=== PATIENT | male | born 1975 | race Caucasian/White ===

== ENCOUNTER → 2016-06-08 | Outpatient (CLI) | payer BC, OTHER ==
[2015-10-31 22:30] VITALS: BP 141/92
[~2016-06-08] MED LIST: ALBU8.5H5 IH; IOHEXOL 240 MG/ML 50ML VIAL. PO ONE; IOHEXOL 300 MG/ML 100ML VIAL. IV ONE; OMEP10CA3 PO
--- NOTE | 2016-06-08 15:58 | KCIC ---
PROCEDURE CT abdomen and pelvis with contrast. HISTORY Pain across back after eating. History of splenectomy and vasectomy. TECHNIQUE Helical CT imaging of the abdomen pelvis is performed after oral contrast and 99 cc of Omnipaque 300 IV contrast. PQRS: One or more the following individualized dose reduction techniques were utilized for the study: 1. Automated exposure control. 2. Adjustment of the mA and/or kV according to patient size. 3. Use of iterative reconstruction technique. COMPARISON None. FINDINGS Lung bases essentially clear. Cardiac size normal. The spleen is absent. The liver, gallbladder, pancreas, adrenal glands, and abdominal aorta are normal. Kidneys enhance symmetrically. Small bilateral cortical cysts. No hydronephrosis. Stomach is unremarkable. No dilated small bowel. Vasectomy clips. Sigmoid colon is decompressed. There is no colon wall thickening. The appendix is normal. There is stool in the ascending and transverse colon. No abdominal adenopathy or free fluid. Urinary bladder is normal. Prostate size normal. No pelvic free fluid. No acute bone abnormality. IMPRESSION No acute abdominal or pelvic abnormality. Electronically signed by: Tha Moore MD (June 08, 2016 15:56:15)
== END | disposition home or self-care (01) ==
LOC: KCIC CT 14:16
PROVIDERS: ATTEND Family Medicine
DX: R10.9 Unspecified abdominal pain (principal)
CPT/HCPCS: 74177; Q9966; Q9967

== ENCOUNTER → 2017-01-17 | Outpatient (CLI) | payer BC, OTHER ==
[2015-10-31 22:30] VITALS: BP 141/92
[~2017-01-17] MED LIST changes: -ALBU8.5H5 IH; +ALBU8.5H8 IH; -IOHEXOL 240 MG/ML 50ML VIAL. PO ONE; -IOHEXOL 300 MG/ML 100ML VIAL. IV ONE
--- NOTE | 2017-01-17 13:50 | CARD ---
APPROVED REPORT EXAM: Two-dimensional and M-mode echocardiogram with Doppler and color Doppler. Other Information Quality : Good INDICATION Murmur 2D DIMENSIONS Left Atrium(2D)3.3 (1.6-4.0cm)IVSd1.0 (0.7-1.1cm) Aortic Root(2D)3.1 (2.0-3.7cm)LVDd4.2 (3.9-5.9cm) LVOT Diameter2.0 (1.8-2.4cm)PWd1.0 (0.7-1.1cm) LVDs3.1 (2.5-4.0cm)FS (%) 27.8 % SV43.5 mlLVEF(%)54.2 (>50%) Aortic Valve AoV Peak Ced.131.8cm/sAoV VTI26.0cm AO Peak GR.7.0mmHgLVOT Peak Ced.129.0cm/s AO Mean GR.4mmHgAVA (VMAX)3.10cm2 LEATHA (VTI)2.50cm2 Mitral Valve MV E Jbopvgle10.9cm/sMV DECEL [id number] MV A Gagdneby06.2cm/sE/A Ratio1.5 Tricuspid Valve TR P. Gquhqlot838di/sRAP [id number] TR Peak Gr.[id number] LEFT VENTRICLE The left ventricle is normal size. There is normal left ventricular wall thickness. Left ventricle sy stolic function is normal. The Ejection Fraction is 55-60%. There is normal LV segmental wall motion. The left ventricular diastolic function and filling is normal for age. RIGHT VENTRICLE The right ventricle is normal size. The right ventricular systolic function is normal. ATRIA The left atrium size is normal. The right atrium size is normal. The interatrial septum is intact wit h no evidence for an atrial septal defect or patent foramen ovale as noted on 2-D or Doppler imaging. AORTIC VALVE The aortic valve is normal in structure and function. Doppler and Color Flow revealed no significant aortic regurgitation. There is no significant aortic valvular stenosis. MITRAL VALVE The mitral valve is normal in structure and function. There is no evidence of mitral valve prolapse. There is no mitral valve stenosis. Doppler and Color Flow revealed no mitral valve regurgitation note d. TRICUSPID VALVE The tricuspid valve is normal in structure and function. Doppler and Color Flow revealed mild tricusp id regurgitation. There is mild pulmonary hypertension. There is no tricuspid valve prolapse or veget ation. There is no tricuspid valve stenosis. PULMONIC VALVE Doppler and Color Flow revealed no pulmonic valvular regurgitation. There is no pulmonic valvular rosario nosis. GREAT VESSELS The aortic root is normal in size. The ascending aorta is normal in size. The IVC is normal in size a nd collapses >50% with inspiration. PERICARDIAL EFFUSION There is no pleural effusion. There is no evidence of significant pericardial effusion. Critical Notification Critical Value: No <Conclusion> Left ventricle systolic function is normal. The Ejection Fraction is 55-60%. There is normal LV segmental wall motion.
== END | disposition home or self-care (01) ==
LOC: ECHO 10:34
PROVIDERS: ATTEND Internal Medicine Cardiovascular Disease
DX: I07.1 Rheumatic tricuspid insufficiency (principal); I27.20 Pulmonary hypertension, unspecified; R01.1 Cardiac murmur, unspecified
CPT/HCPCS: 93306